=== PATIENT | male | born 2000 | race Caucasian/White ===

== ENCOUNTER 2020-08-02 14:50 | Emergency (ER) | payer OTHER ==
[~2020-08-02] VITALS: Ht 165.1 cm; Wt 60.5 kg
[2020-08-02 15:04] VITALS: BP 130/79
--- NOTE | 2020-08-02 15:38 | PHYS DOC ---
Past History Past Medical History: No Pertinent History Past Surgical History: No Surgical History Alcohol Use: None General Adult EDM: Chief Complaint: TARRY STOOL HPI: HPI: Patient is a 20-year-old male coming in for black and tarry stools. Patient states he has been having about 4 days. For the past couple of days has had some epigastric abdominal pain. Denies any history of GI bleeding, bright red blood, rectal pain, or history of constipation. Patient denies any heavy alcohol intake or nsaid use. Denies any history of hepatitis or liver disease. Does not take any [id number] supplements or vitamins. States he drinks energy drinks frequently and has not eaten anything today. States he is felt lightheaded some today but he attributes it to not having eaten anything. No history of coagulopathy. States he otherwise has been well Review of Systems: Review of Systems: All other systems within normal limits except for as noted in the HPI Allergies: Allergies: Allergies Coded Allergies Type Severity Reaction Last Updated Verified Penicillins Allergy Unknown 08/02/20 No Physical Exam: PE: Constitutional: Well developed, well nourished, no acute distress, non-toxic appearance. [] HENT: Normocephalic, atraumatic, bilateral external ears normal, nose normal. [] Eyes: PERRLA, conjunctiva normal, no discharge. [] Neck: No rigidity, supple, no stridor. [] Cardiovascular: Regular rate and rhythm, brisk cap refill [] Lungs & Thorax: Non labored symmetric respirations, no tachypnea or respiratory distress [] Abdomen: Soft, nondistended mild epigastric tenderness, normal rectum without bleeding, hemorrhoids or masses.. Skin: Warm, dry, no erythema, no rash, no pallor. [] Back: Unremarkable Extremities: No deformities, range of motion grossly intact, no lower extremity edema [] Neurologic: Alert and oriented X 3, no focal deficits noted. [] Psychologic: Affect normal, judgement normal, mood normal. [] Current Patient Data: Vital Signs: Vital Signs Date Time Temp Pulse Resp B/P (MAP) Pulse Ox O2 Delivery O2 Flow Rate FiO2 08/02/20 15:04 98.0 58 14 130/79 (96) 100 EKG: EKG: [] Radiology/Procedures: Radiology/Procedures: [] Heart Score: Risk Factors: Risk Factors: DM, Current or recent (<one month) smoker, HTN, HLP, family history of CAD, obesity. Risk Scores: Score 0 - 3: 2.5% MACE over next 6 weeks - Discharge Home Score 4 - 6: 20.3% MACE over next 6 weeks - Admit for Clinical Observation Score 7 - 10: 72.7% MACE over next 6 weeks - Early Invasive Strategies Course & Med Decision Making: Course & Med Decision Making Pertinent Labs and Imaging studies reviewed. (See chart for details) [] Dragon Disclaimer: Dragon Disclaimer: This electronic medical record was generated, in whole or in part, using a voice recognition dictation system. Departure Departure: Impression: Primary Impression: Black tarry stools Additional Impression: Epigastric abdominal pain Disposition: 01 DC HOME SELF CARE/HOMELESS Referrals: PCP,UNKNOWN (PCP) [facility] Patient Instructions: Gastritis, Adult Scripts Omeprazole (OMEPRAZOLE) 20 Mg Tablet.dr 1 TAB PO DAILY for antacid, #30 TAB 3 Refills Prov: NENO THOMSON MD 08/02/20 NENO THOMSON MD Aug 02, 2020 15:38
[2020-08-02 16:03] LABS: FECAL OB PT NEGATIVE (NEG)
[2020-08-02 16:04] LABS: BASO % 1 % (0-3); EOS % 1 % (0-3); HEMOGLOBIN 15.2 g/dL (13.0-17.5); LYMPH # 1.7 x10^3/uL (1.0-4.8); LYMPH % 29 % (24-48); MEAN CORPUSCULAR HEMOGLOBIN 30 pg (25-35); MEAN CORPUSCULAR HGB CONC 34 g/dL (31-37); MEAN CORPUSCULAR VOLUME 88 fL (79-100); MONO # 0.5 x10^3/uL (0.0-1.1); MONO % 9 % (0-9); NEUT # 3.5 x10^3uL (1.8-7.7); NEUT % 61 % (31-73); PLATELET COUNT 240 x10^3/uL (140-400); RED BLOOD COUNT 5.13 x10^6/uL (4.30-5.70); RED CELL DISTRIBUTION WIDTH 13.1 % (11.5-14.5); WHITE BLOOD COUNT 5.7 x10^3/uL (4.0-11.0)
[2020-08-02 16:12] LABS: CALCIUM 9.6 mg/dL (8.5-10.1); GFR 95.3; POTASSIUM 4.2 mmol/L (3.5-5.1)
[2020-08-02 16:18] LABS: ALBUMIN 4.8 g/dL (3.4-5.0); ALBUMIN/GLOBULIN RATIO 1.5 (1.0-1.7); TOTAL BILIRUBIN 0.8 mg/dL (0.2-1.0); TOTAL PROTEIN 7.9 g/dL (6.4-8.2)
[2020-08-02] MEDS ORDERED: OMEP20TA8 PO (16:57)
== END 2020-08-02 17:04 | disposition home or self-care (01) ==
LOC: ER 14:50
DX: K92.1 Melena (principal); R10.13 Epigastric pain; R42 Dizziness and giddiness; Z88.0 Allergy status to penicillin
CPT/HCPCS: 36415; 80053; 82274; 83690; 85025; 85610; 99283

== ENCOUNTER 2021-08-16 17:00 | Emergency (ER) | payer OTHER ==
[~2021-08-16] VITALS: Ht 165.1 cm; Wt 60.0 kg
[~2021-08-16 17:00] MED LIST: OMEP20TA8 PO
[2021-08-16] MEDS: IBUPROFEN 600 MG TABLET. PO ONE (20:24)
--- NOTE | 2021-08-16 20:33 | RAD ---
Exam: CT head and cervical spine INDICATION: Headache, neck pain TECHNIQUE: Sequential axial images through the head and cervical spine were obtained without the admi nistration of IV contrast. Exposure: One or more of the following in the visualized dose reduction techniques were utilized for this examination: 1. Automated exposure control 2. Adjustment of the MA and/or KV according to patient size 3. Use of iterative of reconstructive technique Comparisons: None FINDINGS: Head: No focal parenchymal lesion or hemorrhage is identified. There is no midline shift or sulcal effaceme nt. No acute vascular territory infarction is identified. Seals-white distinction is preserved. The ventricular system is within normal limits without compression hydrocephalus. The basal cisterns are well maintained. The visualized portions of the paranasal sinuses and mastoid air cells are well-pneumatized. No acute fractures. Cervical spine: Straightening of cervical spine which may positional. Vertebral body heights are well-maintained. Fracture to the cervical spine is not identified. No significant spondylotic change in cervical spine. Sized paraspinal soft tissues are unremarkable. IMPRESSION: 1. No acute intracranial abnormality. 2. Negative CT C-spine for acute traumatic injury. Electronically signed by: Clark Cooper MD (08/16/2021 8:31 PM) [facility]
[2021-08-16 20:50] VITALS: BP 141/74
[2021-08-16] MEDS ORDERED: ORPH-16 PO (21:03)
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
== END 2021-08-16 21:10 | disposition home or self-care (01) ==
LOC: ER 17:00
DX: S16.1XXA Strain of muscle, fascia and tendon at neck level, initial encounter (principal); Z88.0 Allergy status to penicillin; V29.9XXA Motorcycle rider (driver) (passenger) injured in unspecified traffic accident, initial encounter; Y93.89 Activity, other specified; Y92.89 Other specified places as the place of occurrence of the external cause; Y99.8 Other external cause status
CPT/HCPCS: 70450; 72125; 99284